=== PATIENT | male | born 1960 | race Caucasian/White ===

== ENCOUNTER → 2017-09-13 | Day surgery (SDC) | payer OTHER ==
[~2017-09-13] MED LIST: LIDOCAINE 1% 300 MG/30 ML SDV SC ONE
--- NOTE | 2017-09-13 14:31 | PDHPUP ---
History & Physical Update H&P update statement: This history and physical update is based on an assessment of the patient which was completed after admission or registration (within 24 hours), but prior to the surgery/procedure. H&P update: H&P reviewed & patient examined, no change in patient's condition since H&P completed
--- NOTE | 2017-09-13 15:20 | CPIP ---
[f rep st] INVASIVE CARDIAC PROCEDURE DATE OF PROCEDURE: 09/13/2017 INDICATION: The patient is 57 years old. He has a history of a recent CVA. Workup thus far has bee n negative. PROCEDURE: Implantation of a [employer] LINQ. TECHNIQUE: Following informed consent, the patient was brought to the [facility]. He was prepped and drape d in the usual sterile fashion. The 4th intercostal space was identified by landmarks. 2% lidocaine was infiltrated into the skin overlying the 4th intercostal space. A 1 cm incision was made with a #15 blade, and the [employer] LINQ was then implanted underneath the skin. Skin was closed with 2 sta ples. COMPLICATIONS: None. DISPOSITION: The patient will be recovered here in the [facility] and discharged home later today. /[id number]/MODL
== END | disposition home or self-care (01) ==
LOC: FCATH 13:44
PROVIDERS: ATTEND Internal Medicine Cardiovascular Disease
PROC: 0JH602Z Insertion of Monitoring Device into Chest Subcutaneous Tissue and Fascia, Open Approach (ICD-10-PCS; principal; 2017-09-13)
DX: I63.9 Cerebral infarction, unspecified (principal); I10 Essential (primary) hypertension; E78.00 Pure hypercholesterolemia, unspecified; E78.5 Hyperlipidemia, unspecified
CPT/HCPCS: C1764

== ENCOUNTER → 2018-08-09 | Outpatient (CLI) | payer OTHER ==
--- NOTE | 2018-08-09 19:39 | CPEEG ---
24-HOUR VIDEO EEG DATE OF STUDY: 08/09/2018 DATE OF INTERPRETATION: 08/09/2018. INTERPRETATION: This 4-hour video EEG recording is abnormal due to the following reasons: 1. There are potentially epileptogenic abnormalities present over the left frontotemporal head regions. 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 2. There is a moderately severe degree of slowing and asymmetry over the left hemisphere. These findings would be consistent with the patient's known previous left hemisphere cerebral infarction. The patient did not have any clinical events during the video EEG monitoring session. REPORT: This 4-hour video EEG contains 10 Hz alpha activity of the posterior head regions, maximal right. There is a moderately severe degree of hemispheric slowing over the left, consisting of polymorphic theta and delta frequency activity. In addition, there was a moderate degree of asymmetry with loss of background activity over the left hemisphere. The primary feature of this recording was the presence of left temporal sharp waves and left temporal intermittent rhythmic delta activity (TIRDA). These findings were present at rest and had no specific additional activation with photic stimulation or hyperventilation. The patient became drowsy and fell asleep during the study. During drowsiness and sleep, there was increased activation of left temporal sharp waves and persistence of left TIRDA. The TIRDA had maximal amplitudes over the frontotemporal head regions. The sharp waves were broad and had a large field over the temporal electrodes. Therefore , they were best viewed with a referential montage. The patient did not have any clinical events during the video EEG monitoring session. /[id number]/MODL MTDD
== END ==
LOC: FCPNEURO 08:23
PROVIDERS: ATTEND Psychiatry & Neurology Neurology
DX: G40.909 Epilepsy, unspecified, not intractable, without status epilepticus (principal); I63.9 Cerebral infarction, unspecified